=== PATIENT | male | born 1995 | race Caucasian/White ===

== ENCOUNTER 2016-10-03 09:21 | Emergency (ER) | payer OTHER ==
[2016-10-03 09:50] VITALS: BP 125/76
[2016-10-03] MEDS ORDERED: Aspirin Low Dose CHEW TAB* 81 MG PO ONE (10:41)
[2016-10-03] MEDS ORDERED: Al Hydrox/Mg Hydrox/Simet LIQ* 30 ML UDC PO ONE (10:42)
[2016-10-03] MEDS ORDERED: Lidocaine 2% VISCOUS* 15 ML UDC PO ONE (10:42)
--- NOTE | 2016-10-03 12:49 | UC ---
Brandt Reese Billy, scribed for Jessica Glass DO on 10/03/16 at 1014 . General HPI - HPI Summary HPI Summary: Patient is a 20 year-old male coming to [facility] [place] of pain in the chest and throat. He states that 3 days ago, he went out and binge drank EtOH. He drinks only on rare occasion. The following day, he had numerous episodes of nausea and vomiting throughout the day. He feels a constant pressure in the chest, 1-2/10, without any pain in the neck, jaw, or arm. Denies any diaphoresis , nausea, SOB, or dizziness. At this time, he says that whenever he sneezes, coughs, or blows his nose, he will feel a "squeezing pain" in his chest. He states that he now has rhinorrhea and feels like he is "coming down with a head cold." He had a cough yesterday but none today. Denies any blood with cough or vomit. - History of Current Complaint Chief Complaint: UCGeneralIllness Stated Complaint: SORE THROAT, AND CHEST CONGESTION Time Seen by Provider: 10/03/16 09:44 Hx Obtained From: Patient Onset/Duration: Gradual Onset, Lasting Days, Still Present Timing: Constant Onset Severity: Moderate Current Severity: Moderate Pain Intensity: 1 Pain Location at: chest and throat Pain Radiates to: none Character: squeezing Aggravating: squeezing pain with cough, sneeze, or blowing nose Alleviating: none Associated Signs & Symptoms: Negative: Abdominal Pain, Cough - none today, Dizziness, Diaphoresis, Hematemesis, Hemoptysis, Nausea - none today, SOB, Vomiting - none today - Allergy/Home Medications Allergies/Adverse Reactions: Allergies Allergy/AdvReac Type Severity Reaction Status Date / Time No Known Allergies Allergy Verified 10/03/16 09:45 PMH/Surg Hx/FS Hx/Imm Hx Previously Healthy: Yes Endocrine History Of: Denies: Diabetes, Thyroid Disease Cardiovascular History Of: Denies: Cardiac Disorders, Hypertension Respiratory History Of: Denies: COPD, Asthma GI/ History Of: Denies: Ulcer - Surgical History Surgical History: None Surgery Procedure, Year, and Place: Denies - Family History Known Family History: Positive: Cardiac Disease - Grandfather with [place] at age 35. Sister with unspecified heart condition, Hypertension - Social History Alcohol Use: Occasionally Substance Use Type: None Smoking Status (MU): Never Smoked Tobacco Household Exposure Type: Cigarettes Review of Systems Constitutional: Negative Skin: Negative Eyes: Negative ENT: Nasal Discharge, Other - Patient feels like he is "coming down with a head cold." Respiratory: Negative Cardiovascular: Chest Pain Gastrointestinal: Negative Genitourinary: Negative Motor: Negative Neurovascular: Negative Musculoskeletal: Negative Neurological: Negative Psychological: Negative All Other Systems Reviewed And Are Negative: Yes Physical Exam Triage Information Reviewed: Yes Appearance: Well-Appearing, No Pain Distress, Well-Nourished Vital Signs: Initial Vital Signs Temp 99.2 F 10/03/16 09:46 Pulse 59 10/03/16 09:46 Resp 16 10/03/16 09:46 BP 125/76 10/03/16 09:46 Pulse Ox 100 10/03/16 09:46 Vital Signs Reviewed: Yes Eyes: Positive: Conjunctiva Clear. Negative: Discharge ENT: Positive: TMs normal, Tonsillar swelling. Negative: TM bulging, TM dull, TM red, Trismus, Muffled/hoarse voice Neck: Positive: Supple, Nontender Respiratory: Positive: Chest non-tender, Lungs clear, Normal breath sounds, No respiratory distress, No accessory muscle use Cardiovascular: Positive: RRR, No Murmur Musculoskeletal Exam: Normal Neurological Exam: Normal Neurological: Positive: Alert Psychological Exam: Normal Psychological: Positive: Age Appropriate Behavior Skin Exam: Normal, Other - Warm, dry skin. Diagnostics - EKG Cardiac Rate: NL - 67 bpm Cardiac Rhythm: Sinus: Normal ST Segment: Non-Specific - Minimal elevations in II, III, and aVF. Course/Dx - Differential Dx - Multi-Symptom Differential Diagnoses: Cardiac Ischemia, Other - esophageal injury Provider Diagnoses: cp r/o acs - Physician Notifications Discussed Patient Care With: ZHANG Truong ([facility] [place] @ 1034: accepts transfer to ED. Instructed by Provider To: Transfer Discharge - Discharge Plan Condition: Stable Disposition: TRANS HIGHER LVL OF CARE FAC Referrals: John Martino MD [Primary Care Provider] - The documentation as recorded by the Brandt arredondo Billy accurately reflects the service I personally performed and the decisions made by , Jessica Glass DO.
== END 2016-10-03 11:34 | disposition short-term general hospital (02) ==
LOC: UCEAST 09:21
DX: R07.89 Other chest pain (principal); Z77.22 Contact with and (suspected) exposure to environmental tobacco smoke (acute) (chronic)
CPT/HCPCS: 87651; 93005; 99213; A9270-GY; G0463

== ENCOUNTER 2016-10-03 11:53 | Emergency (ER) | payer OTHER ==
[2016-10-03] MEDS ORDERED: Pantoprazole IV* 40 MG IV ONE (13:42)
[2016-10-03] MEDS ORDERED: Sucralfate TAB* 1 GM PO ONE (13:42)
[2016-10-03 17:36] VITALS: BP 131/72
--- NOTE | 2016-10-06 14:54 | ED ---
Martin Reese Benjamin, scribed for Robin Murillo MD on 10/03/16 at 1413 . HPI Chest Pain - HPI Summary HPI Summary: 20yo male c/o mid sternal CP since Monday. Pt reports CP worsens with deep breaths. Pt also reports vomiting all throughout Monday and that his throat hurts to swallow. Denies smoking hx or any FMHx of CAD. Pt also denies any heart hx. Did not try any medication for his CP. - History of Current Complaint Chief Complaint: EDChestPainROMI Time Seen by Provider: 10/03/16 13:32 Hx Obtained From: Patient Onset/Duration: Started Days Ago, Still Present Timing: Constant Initial Severity: Mild Current Severity: Mild Chest Pain Location: Mid Sternal Chest Pain Radiates: No Aggravating Factor(s): Deep Breaths Alleviating Factor(s): Nothing Associated Signs and Symptoms: Positive: Chest Pain, Vomiting - Allergy/Home Medications Allergies/Adverse Reactions: Allergies Allergy/AdvReac Type Severity Reaction Status Date / Time No Known Allergies Allergy Verified 10/03/16 09:45 PMH/Surg Hx/FS Hx/Imm Hx Endocrine/Hematology History: Denies: Hx Diabetes, Hx Thyroid Disease Cardiovascular History: Denies: Hx Hypertension Respiratory History: Denies: Hx Asthma, Hx Chronic Obstructive Pulmonary Disease (COPD) GI History: Denies: Hx Ulcer - Surgical History Surgery Procedure, Year, and Place: Denies Infectious Disease History: Yes Infectious Disease History: Reports: Hx of Known/Suspected MRSA - SKIN INFECTION Denies: Hx Clostridium Difficile, Hx Hepatitis, Hx Human Immunodeficiency Virus (HIV), Hx Shingles, Hx Tuberculosis, Hx Known/Suspected VRE, Hx Known/ Suspected VRSA, History Other Infectious Disease, Traveled Outside the [place] in Last 30 Days - Family History Known Family History: Positive: Hypertension Negative: Cardiac Disease, Diabetes - Social History Occupation: Employed Full-time Lives: With Family Alcohol Use: Occasionally Substance Use Type: Reports: None Smoking Status (MU): Never Smoked Tobacco Review of Systems Constitutional: Negative Eyes: Negative ENT: Negative Positive: Chest Pain Respiratory: Negative Positive: Vomiting Genitourinary: Negative Musculoskeletal: Negative Skin: Negative Neurological: Negative Psychological: Normal All Other Systems Reviewed And Are Negative: Yes Physical Exam Triage Information Reviewed: Yes Vital Signs On Initial Exam: Initial Vitals Temp Pulse Resp BP Pulse Ox 98.4 F 66 18 132/80 99 10/03/16 12:00 10/03/16 12:00 10/03/16 12:00 10/03/16 12:00 10/03/16 12:00 Vital Signs Reviewed: Yes Appearance: Positive: Well-Appearing, No Pain Distress, Well-Nourished Skin: Positive: Warm, Skin Color Reflects Adequate Perfusion, Dry Head/Face: Positive: Normal Head/Face Inspection Eyes: Positive: EOMI, PETER ENT: Positive: Hearing grossly normal, Pharynx normal, TMs normal Neck: Positive: Supple, Nontender Respiratory/Lung Sounds: Positive: Clear to Auscultation, Breath Sounds Present Cardiovascular: Positive: RRR, Pulses are Symmetrical in both Upper and Lower Extremities Abdomen Description: Positive: Nontender, No Organomegaly, Soft Bowel Sounds: Positive: Present Musculoskeletal: Positive: Normal, Strength/ROM Intact Neurological: Positive: Sensory/Motor Intact, Alert, Oriented to Person Place, Time, CN Intact II-III Psychiatric: Positive: Normal, Affect/Mood Appropriate Diagnostics - Vital Signs Vital Signs Temp Pulse Resp BP Pulse Ox 10/03/16 12:00 98.4 F 66 18 132/80 99 - Laboratory Lab Statement: Any lab studies that have been ordered have been reviewed, and results considered in the medical decision making process. Chest Pain Course/Dx - Course Course Of Treatment: Mr. Castellanos presented with midsternal cp after having been vomiting yesterday. The nausea is gone but it hurts to swallow or eat. He improved with GI meds and I will treat him for a coup[le days. There is no evidence of a full thickness injury to the esophagus clinically. - Diagnoses Provider Diagnoses: Esophagitis Discharge - Discharge Plan Condition: Stable Disposition: HOME Patient Education Materials: Esophagitis (ED) Referrals: John Martino MD [Primary Care Provider] - The documentation as recorded by the Martin arredondo Benjamin accurately reflects the service I personally performed and the decisions made by me, Robin Murillo MD.
== END 2016-10-03 14:50 | disposition home or self-care (01) ==
LOC: ED 11:53
DX: K20.9 Esophagitis, unspecified (principal); R07.9 Chest pain, unspecified; R11.10 Vomiting, unspecified
CPT/HCPCS: 96374; 99282; A9270-GY

== ENCOUNTER 2019-06-19 12:31 | Emergency (ER) | payer OTHER ==
[2019-06-19] MEDS ORDERED: Ondansetron ODT TAB* 4 MG SL ONE (13:35)
--- NOTE | 2019-06-19 13:39 | ED ---
Abdominal Pain/Male - HPI Summary HPI Summary: The patient is a 23 y/o M presenting to [facility] with a chief complaint of nausea, vomiting and abdominal discomfort onset two days ago. He endorses a sore throat and decreased oral intake secondary to vomiting, but he denies any fevers, chills, cough, SOB, diarrhea, or body aches. Last BM yesterday. Not currently in pain. He hasnt taken any medications [employer] for the pain. No aggravating or alleviating factors. No recent camping trips or travel outside the country. He notes that his dad has been sick recently, but he isnt sure if he was experiencing the same symptoms. Did not get flu vaccine this year. No PMHx. Nonsmoker, occasional EtOH, no substance use. Medications reviewed. Allergies noted. - History of Current Complaint Chief Complaint: EDNauseaVomitDiarrh Stated Complaint: FLU LIKE SYMPTOMS PER PT Time Seen by Provider: 06/19/19 13:28 Hx Obtained From: Patient Onset/Duration: Lasting Days - two, Still Present Timing: Constant Severity Initially: Moderate Severity Currently: Mild Pain Intensity: 0 Pain Scale Used: 0-10 Numeric Location: Diffuse Radiates: No Aggravating Factor(s): Food Alleviating Factor(s): Nothing Associated Signs And Symptoms: Positive: Decreased Appetite, Nausea, Vomiting. Negative: Fever, Other - chills, cough, SOB, body aches - Allergies/Home Medications Allergies/Adverse Reactions: Allergies Allergy/AdvReac Type Severity Reaction Status Date / Time No Known Allergies Allergy Verified 06/19/19 12:35 PMH/Surg Hx/FS Hx/Imm Hx Endocrine/Hematology History: Denies: Hx Diabetes, Hx Thyroid Disease Cardiovascular History: Denies: Hx Hypertension Respiratory History: Denies: Hx Asthma, Hx Chronic Obstructive Pulmonary Disease (COPD) GI History: Denies: Hx Ulcer - Surgical History Surgical History: None Surgery Procedure, Year, and Place: none Infectious Disease History: No Infectious Disease History: Reports: Hx of Known/Suspected MRSA - SKIN INFECTION Denies: Hx Clostridium Difficile, Hx Hepatitis, Hx Human Immunodeficiency Virus (HIV), Hx Shingles, Hx Tuberculosis, Hx Known/Suspected VRE, Hx Known/ Suspected VRSA, History Other Infectious Disease, Traveled Outside the [place] in Last 30 Days - Family History Known Family History: Positive: Hypertension Negative: Cardiac Disease, Diabetes - Social History Alcohol Use: Occasionally Hx Substance Use: No Substance Use Type: Reports: None Hx Tobacco Use: No Smoking Status (MU): Never Smoked Tobacco Review of Systems Negative: Fever, Chills Positive: Sore Throat Negative: Shortness Of Breath, Cough Positive: Abdominal Pain, Vomiting, Nausea, Other - decreased oral intake. Negative: Diarrhea Negative: Myalgia All Other Systems Reviewed And Are Negative: Yes Physical Exam - Summary Physical Exam Summary: Constitutional: Well-developed, Well-nourished, Alert. (-) Distressed Skin: Warm, Dry HENT: Normocephalic; Atraumatic Eyes: Conjunctiva normal Neck: Musculoskeletal ROM normal neck. (-) JVD, (-) Stridor, (-) Tracheal deviation Cardio: Rhythm regular, rate normal, Heart sounds normal; Intact distal pulses; Radial pulses are 2+ and symmetric. (-) Murmur Pulmonary/Chest wall: Effort normal. (-) Respiratory distress, (-) Wheezes, (-) Rales Abd: Soft, (-) tenderness, (-) Distension, (-) Guarding, (-) Rebound Musculoskeletal: (-) Edema Lymph: (-) Cervical adenopathy Neuro: Alert, Oriented x3 Psych: Mood and affect Normal Triage Information Reviewed: Yes Vital Signs On Initial Exam: Initial Vitals Temp Pulse Resp BP Pulse Ox 98.6 F 90 16 141/96 98 06/19/19 12:32 18 12:32 06/19/19 12:32 06/19/19 12:32 06/19/19 12:32 Vital Signs Reviewed: Yes Procedures - Sedation Patient Received Moderate/Deep Sedation with Procedure: No Diagnostics - Vital Signs Vital Signs Temp Pulse Resp BP Pulse Ox 06/19/19 12:32 98.6 F 90 16 141/96 98 - Laboratory Lab Statement: Any lab studies that have been ordered have been reviewed, and results considered in the medical decision making process. Re-Evaluation - Re-Evaluation First Eval Re-Evaluation Time: 14:30 Change: Improved Comment: Patient able to tolerate PO. We discussed results and plan for discharge home. Abdominal Pain Male Course/Dx - Course Course Of Treatment: Patient is multiple days of vomiting. Patient has no abdominal pain and no tenderness on exam. Patient's overall well-appearing. Patient does not appear dehydrated. Patient had a negative influenza swab. Patient was given Zofran and able to tolerate by mouth. Patient is discharged with Zofran and Bentyl. - Diagnoses Provider Diagnoses: Vomiting Discharge ED - Sign-Out/Discharge Documenting (check all that apply): Patient Departure - Patient will be discharged home. - Discharge Plan Condition: Stable Disposition: HOME Prescriptions: Dicyclomine CAP* [Bentyl CAP*] 10 mg PO TID PRN #12 cap PRN Reason: cramping Ondansetron TAB* [Zofran 4 MG Tab*] 4 mg PO Q8HR PRN #12 tab PRN Reason: Vomiting Patient Education Materials: Acute Nausea and Vomiting (ED) Referrals: John Martino MD [Primary Care Provider] - 3 Days Additional Instructions: Please take nausea medications as prescribed. Stay hydrated with Pedialyte. Follow up with your primary care provider in 1-3 days. Return to the emergency department for severe abdominal pain, unable to urinate 12 hours, or you are unable to tolerate anything by mouth for 12 hours, or any other concerning symptoms. - Billing Disposition and Condition Condition: STABLE Disposition: Home - Attestation Statements Document Initiated by Savanah: Yes Documenting Scribe: Brandi Peck Provider For Whom Savanah is Documenting (Include Credential): Dr. Chetan Obrien MD Scribe Attestation: Brandi Reese scribed for Dr. Chetan Obrien MD on 06/19/19 at 1507. Scribe Documentation Reviewed: Yes Provider Attestation: The documentation as recorded by the Brandi arredondo accurately reflects the service I personally performed and the decisions made by me, Dr. Chetan Obrien MD Status of Scribmadhuri Document: Viewed
[2019-06-19 14:09] LABS: Influenza A Molecular NEGATIVE (Negative); Influenza B Molecular NEGATIVE (Negative)
[2019-06-19] MEDS ORDERED: Dicyclomine CAP* 10 MG PO ONE (14:33)
[2019-06-19 14:44] VITALS: BP 147/77
== END 2019-06-19 14:41 | disposition home or self-care (01) ==
LOC: ED 12:31
DX: R11.10 Vomiting, unspecified (principal)
CPT/HCPCS: 99282; A9270-GY